=== PATIENT | male | born 1995 | race Caucasian/White ===

== ENCOUNTER 2016-10-16 21:17 | Emergency (ER) | payer OTHER ==
[~2016-10-16] VITALS: Ht 180.3 cm; Wt 113.4 kg
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
[2016-10-16] MEDS ORDERED: NO MEDICATIONS (21:27)
== END 2016-10-16 23:24 | disposition home or self-care (01) ==
LOC: SED 21:17
DX: S52.571A Other intraarticular fracture of lower end of right radius, initial encounter for closed fracture (principal); V89.2XXA Person injured in unspecified motor-vehicle accident, traffic, initial encounter; Y92.410 Unspecified street and highway as the place of occurrence of the external cause
CPT/HCPCS: 29125; 73090; 73110; 99284